=== PATIENT | female | born 1995 | race Hispanic/Latino ===

== ENCOUNTER → 2017-08-26 | Outpatient (REF) | payer OTHER ==
[2017-08-26 15:51] LABS: CHLAMYDIA DNA AMPLIFICATION POSITIVE (NEGATIVE); GC DNA AMPLIFICATION NEGATIVE (NEGATIVE)
== END ==
LOC: M LAB REF 14:08
DX: Z11.3 Encounter for screening for infections with a predominantly sexual mode of transmission (principal)

== ENCOUNTER → 2018-01-30 | Outpatient (REF) | payer OTHER ==
[2018-01-30 15:27] LABS: CHLAMYDIA DNA AMPLIFICATION NEGATIVE (NEGATIVE); GC DNA AMPLIFICATION NEGATIVE (NEGATIVE)
== END ==
LOC: M LAB REF 13:07
DX: Z20.2 Contact with and (suspected) exposure to infections with a predominantly sexual mode of transmission (principal)
CPT/HCPCS: 87591

== ENCOUNTER 2019-01-20 15:03 | Emergency (ER) | payer OTHER ==
[~2019-01-20] VITALS: Ht 157.5 cm; Wt 71.3 kg
[2019-01-20 16:01] LABS: BASO % 0.2 % (0.0-1.0); EOS # 0.1 10^3/uL (0.0-0.5); EOS % 0.9 % (0.0-3.0); HEMATOCRIT 37.1 % (36.0-47.0); HEMOGLOBIN 12.1 g/dl (12.0-15.5); LYMPH # 2.1 10^3/uL (1.5-5.0); MEAN CORPUSCULAR HEMOGLOBIN 28.1 pg (27.0-33.0); MEAN CORPUSCULAR HGB CONC 32.6 g/dl (32.0-36.5); MEAN CORPUSCULAR VOLUME 86.1 fl (80.0-96.0); MONO # 0.7 10^3/uL (0.0-0.8); MONO % 7.5 % (0.0-5.0); NEUTROPHILS # 5.9 10^3/uL (1.5-8.5); NEUTROPHILS % 67.1 % (36.0-66.0); PLATELET COUNT, AUTOMATED 246 10^3/uL (150-450); RED BLOOD COUNT 4.31 10^6/uL (4.00-5.40); WHITE BLOOD COUNT 8.8 10^3/uL (4.0-10.0)
--- NOTE | 2019-01-20 16:46 | REP ---
Emergency first trimester ultrasound for pelvic pain and bleeding: The studies performed transabdominal and endovaginal and Doppler ultrasound assessment: The uterus is retroverted and retroflexed. There is no identifiable intrauterine gestational sac. However, there is a gestational sac with a a yolk sac and pole within the endocervical canal suggestive of spontaneous in progress. The pole crown-rump length is 2.4 mm corresponding to 5 weeks 6 days gestational age. Right ovary: The right ovary measures 4.4 x 2.4 x 2.2 cm and is normal size. There are too right ovarian follicles, one measuring 9 mm and the other measuring 11 mm. Left ovary: The left ovary measures 2.7 x 1.7 x 1.9 cm and is normal size. There is There is no dominant left ovarian mass or cyst. There is vascular flow in both ovaries. The Doppler resistive index in the parenchymal arteries of the right ovary 0.4 left Ovary 0.54. Impression: There is an intrauterine gestational sac containing a pole and yolk sac within the endocervical canal compatible with spontaneous in progress. There are too right ovarian follicles. There is vascular flow in both ovaries. There is a small volume of fluid in the fundal portion of the endometrium. Electronically Signed by Dmitri Munoz MD 01/20/2019 04:38 P
[2019-01-20 17:15] VITALS: BP 117/66
== END 2019-01-20 17:32 | disposition home or self-care (01) ==
LOC: M ED 15:03
DX: O03.9 Complete or unspecified spontaneous abortion without complication (principal); O20.8 Other hemorrhage in early pregnancy; Z3A.01 Less than 8 weeks gestation of pregnancy